=== PATIENT | female | born 2000 | race African-American/Black ===

== ENCOUNTER 2024-10-23 21:00 | Emergency (ER) | payer OTHER ==
[~2024-10-23] VITALS: Ht 162.6 cm; Wt 68.0 kg
[2024-10-23 21:11] VITALS: O2SAT 97
[2024-10-23] MEDS: EPINEPHRINE 1:1000 1 MG/ML AMP INJ ONE (21:15)
[2024-10-23] MEDS: FAMOTIDINE 20MG/2ML VIAL IV ONE (21:15)
[2024-10-23 22:38] VITALS: BP 130/83; PULSE 86; RESP 12; TEMP 37.1; O2SAT 100
[2024-10-23] MEDS ORDERED: EPIN0.3P3 IM (22:41)
[2024-10-23] MEDS ORDERED: P50 MT (22:41)
[2024-10-23] MEDS ORDERED: DIPH50CA42 MT (22:42)
[2024-10-23] MEDS ORDERED: FAMO-135 MT (22:42)
== END 2024-10-23 23:00 | disposition home or self-care (01) ==
LOC: ER 21:00
DX: T78.2XXA Anaphylactic shock, unspecified, initial encounter (principal); L50.9 Urticaria, unspecified; F10.90 Alcohol use, unspecified, uncomplicated; Y92.89 Other specified places as the place of occurrence of the external cause; Y90.9 Presence of alcohol in blood, level not specified
CPT/HCPCS: 99291; A4606